=== PATIENT | female | born 1990 | race Two or more races ===

== ENCOUNTER 2018-02-25 12:37 | Emergency (ER) | payer OTHER ==
[~2018-02-25] VITALS: Ht 154.9 cm; Wt 68.1 kg
[2018-02-25 13:01] VITALS: Ht 154.9 cm; Wt 68.1 kg
[2018-02-25 14:09] VITALS: BP 115/73
== END 2018-02-25 14:20 | disposition home or self-care (01) ==
LOC: ED 12:37
DX: R11.2 Nausea with vomiting, unspecified (principal); R19.7 Diarrhea, unspecified; R10.9 Unspecified abdominal pain
CPT/HCPCS: Q0162